=== PATIENT | female | born 1990 | race American Indian/Alaskan Native ===

== ENCOUNTER 2017-08-26 11:10 | Emergency (ER) | payer MEDICAID ==
[2017-08-26 11:57] VITALS: BP 119/82
--- NOTE | 2017-08-26 13:46 | Emergency Department Report ---
ED Dysuria HPI - HPI Chief Complaint: Urogenital-Female Stated Complaint: INFECTION Time Seen by Provider: 08/26/17 13:05 Duration: 3 Days Severity: Mild Symptoms: Dysuria: Yes, Frequency: No, Suprapubic Pain: No, Flank Pain: No, Fever: No, Hematuria: No, Abdominal Pain: Yes, Previous UTI's: No ED Review of Systems ROS: Stated complaint: INFECTION Other details as noted in HPI Comment: All other systems reviewed and negative Genitourinary: dysuria, discharge ED Past Medical Hx - Past Medical History Previous Medical History?: No - Surgical History Additional Surgical History: IUD- LMP 2 W AGO - Social History Smoking Status: Never Smoker Substance Use Type: None Dysuria Exam - Exam General: Vital signs noted. No distress. Alert and acting appropriately. HR 90 ON EXAM Exam: Yes Moist Mucous Membranes, No CVA Tenderness, No Abdominal Tenderness, No Rigidity or Guarding ED Course Vital Signs 08/26/17 11:54 Temperature 98.7 F Pulse Rate 98 H Respiratory 18 Rate Blood Pressure 119/82 O2 Sat by Pulse 100 Oximetry - Reevaluation(s) Reevaluation #1: 08/26/17 15:00 TO ER W DYSURIA VAG DC SUPRAPUBIC PAIN NO FEVER NONTOXIC AMBULATORY TAKING PO NO CVA TENDERNESS NO FLANK PAIN LMP 2 W AGO IUD UA NOTED 1 SEX PARTNER HE WAS TESTED LAST MONTH AND NEG WHITE DC VAGINAL TENDERNESS NO LESIONS NO ODOR NO BACK PAIN GIVEN DISCUSSION ABOUT PARTNER WILL CX AND COVER EMPIRACALLY PELVIC COMPLETED. OS CLOSED. RED. THICK WHITE DISCHARGE. NO ODOR. NO ADENEXAL TENDERNESS OR CERVICAL TENDERNESS SAFE SEX DISCUSSED W PT Reevaluation #2: 08/26/17 15:03 DC HOME VSS NON TOXIC ED Medical Decision Making - Medical Decision Making SEE NOTE - Differential Diagnosis UTI V STD Critical care attestation.: If time is entered above; I have spent that time in minutes in the direct care of this critically ill patient, excluding procedure time. ED Disposition Clinical Impression: STD (female), Vaginitis, Yeast infection of the vagina Disposition: DC-01 TO HOME OR SELFCARE Is pt being admited?: No Does the pt Need Aspirin: No Condition: Stable Instructions: Safe Sex (ED) Additional Instructions: PARTNERS SHOULD BE TREATED YOGURT BUTTERMILK GOOD HYGIENE URINATE AFTER SEX SAFE SEX Referrals: PRIMARY CARE, [Primary Care Provider] - 3-5 Days PANDA HENDERSON MD [Staff Physician] - 3-5 Days EUGENIA HENDERSON MD [Referring] - 3-5 Days Time of Disposition: 14:54
[2017-08-26 14:39] LABS: Bilirubin,Urine NEG (Negative); Blood,Urine NEG (Negative); Ketones,Urine TR mg/dL (Negative); Leukocyte Esterase,Urine MOD (Negative); Mucus,Urine 3+ /HPF; Nitrite,Urine NEG (Negative); Protein,Urine <15 mg/dL mg/dL (Negative); Urobilinogen,Urine < 2.0 mg/dL (<2.0)
[2017-08-26] MEDS ORDERED: DIFLUCAN PO ONE (14:51)
[2017-08-26] MEDS ORDERED: XYLOCAINE 1% MPF 5 mL INFILTRATI ONE (14:51)
[2017-08-26] MEDS ORDERED: ROCEPHIN IM ONE (14:51)
[2017-08-26] MEDS ORDERED: ZITHROMAX PO ONE (14:51)
[2017-08-26] MEDS ORDERED: ULTRAM PO ONE (14:52)
[2017-08-26] MEDS ORDERED: FLAGYL PO ONE (14:53)
[2017-08-26] MEDS ORDERED: ZOFRAN ODT PO ONE (14:53)
== END 2017-08-26 15:47 | disposition home or self-care (01) ==
LOC: ED 11:10
DX: B37.3 Candidiasis of vulva and vagina (principal); A64 Unspecified sexually transmitted disease
CPT/HCPCS: 81001; 81025; 87086; 87210; 87591; 96372; 99284; J0696; Q0162